=== PATIENT | female | born 1960 | race Caucasian/White ===

== ENCOUNTER 2016-03-18 16:34 | Outpatient (CLI) | payer OTHER | END 2016-03-18 16:35 | disposition home or self-care (01) | LOC: LAB 16:34 | PROVIDERS: ATTEND General Practice | DX: Z20.2 Contact with and (suspected) exposure to infections with a predominantly sexual mode of transmission (principal) | CPT/HCPCS: 36415 ==

== ENCOUNTER 2016-03-23 09:27 | Outpatient (CLI) ==
[2016-03-23 13:15] LABS: ALBUMIN 3.8 g/dL (3.4-5.0); ALBUMIN/GLOBULIN RATIO 1.46; ANION GAP 15.8; BILIRUBIN,TOTAL 0.33 mg/dL (0.00-1.20); BUN/CREATININE RATIO 6.73; CALCIUM 9.3 mg/dL (8.2-10.2); CHOL/HDL RATIO 3.3 (4.5-5.5); CREATININE 1.04 mg/dL (0.60-1.30); POTASSIUM 3.8 mmol/L (3.5-5.10); TOTAL PROTEIN 6.4 g/dL (6.4-8.2)
== END 2016-03-23 09:28 | disposition home or self-care (01) ==
LOC: LAB 09:27
PROVIDERS: ATTEND General Practice
DX: E11.9 Type 2 diabetes mellitus without complications (principal)
CPT/HCPCS: 36415; 80053; 80061; 83036

== ENCOUNTER 2016-03-31 13:03 | Outpatient (CLI) ==
--- NOTE | 2016-03-31 13:54 | US ---
EXAM: ULTRASOUND CAROTID DUPLEX, BILATERAL HISTORY: Hypertension, diabetes, dizziness FINDINGS: Shafer-scale ultrasound, color Doppler and spectral analysis was performed. Velocities are in meters per second. By shafer scale and color Doppler imaging, there were regions of heterogeneous plaque formation ident ified within the carotid bulbs and internal carotid arteries. These regions of plaque appeared to r emain less than 50% vessel diameter. RIGHT: External carotid artery peak systolic velocity: 1.2 Common carotid artery peak systolic velocity/end diastolic velocity: 0.6/0.2 Internal carotid artery peak systolic velocity: 0.9 ICA/CCA peak systolic velocity ratio: 1.4 ICA end diastolic velocity: 0.3 LEFT: External carotid artery peak systolic velocity: 1.0 Common carotid artery peak systolic velocity/end diastolic velocity: 0.7/0.2 Internal carotid artery peak systolic velocity: 1.0 ICA/CCA peak systolic velocity ratio: 1.5 ICA end diastolic velocity: A 0.3 The right and left vertebral arteries were antegrade. IMPRESSION: 1. By shafer scale and color Doppler imaging, there were regions of heterogeneous plaque formation id entified within the carotid bulbs and internal carotid arteries. These regions of plaque appeared t o remain less than 50% vessel diameter. 2. Internal carotid artery peak systolic velocities and ICA/CCA peak systolic velocity ratios indic ate no hemodynamically significant stenosis bilaterally. 3. Both tibial arteries were antegrade.
== END 2016-03-31 13:04 | disposition home or self-care (01) ==
LOC: RAD 13:03
PROVIDERS: ATTEND General Practice
DX: R09.89 Other specified symptoms and signs involving the circulatory and respiratory systems (principal)

== ENCOUNTER 2016-04-06 10:01 | Outpatient (CLI) ==
--- NOTE | 2016-04-06 10:59 | MAMMO ---
EXAM: Digital right diagnostic mammogram HISTORY: Right breast nodule COMPARISON: Mammogram 03/04/2015 and screening mammogram 02/01/2015 FINDINGS: MLO and CC views of the bilateral breasts were performed digitally and demonstrate scatte red fibroglandular breast density (25 - 50%). Bilateral benign-appearing upper outer breast lymph no shadi/nodules are unchanged from prior exam. The area of nodularity in the posterior central right br east as seen on screening examination dating back to 02/01/2015 is unchanged. This is not identifie d on today's right MLO view definitively. This is unchanged in size measuring 0.9 cm in diameter an d approximately 11.2 cm from the nipple. IMPRESSION: No significant change in right breast nodular asymmetry in the posterior right central breast on CC view dating back to 02/01/2015. No new or suspicious nodule is noted in the left breast . RECOMMENDATION: 6-month follow up right-sided diagnostic mammogram to document 2 years of stability. BIRADS category III: Probable benign finding.
== END 2016-04-06 10:02 | disposition home or self-care (01) ==
LOC: RAD 10:01
PROVIDERS: ATTEND General Practice
DX: N63 Unspecified lump in breast (principal)

== ENCOUNTER 2016-05-06 11:56 | Outpatient (CLI) ==
[2016-05-06 12:54] LABS: FLU INTERNAL QC INTERNAL QC VALID; RAPID FLU A NEGATIVE (NEGATIVE); RAPID FLU B NEGATIVE (NEGATIVE)
== END 2016-05-06 11:57 | disposition home or self-care (01) ==
LOC: LAB 11:56
PROVIDERS: ATTEND General Practice
DX: R05 Cough (principal); R50.9 Fever, unspecified; R52 Pain, unspecified
CPT/HCPCS: 87651; 87804; 87880

== ENCOUNTER 2016-09-28 11:58 | Outpatient (CLI) ==
[2016-09-28 13:19] LABS: BASOPHILS # (AUTO) 0.1 K/uL (0-0.2); EOSINOPHILS # (AUTO) 0.3 K/ul (0.0-0.7); EOSINOPHILS % (AUTO) 3.1 % (0.0-7.0); HEMATOCRIT 43.2 % (37.0-47.0); HEMOGLOBIN 14.3 g/dl (12.0-16.0); IMMATURE GRANULOCYTE % (AUTO) 0.3 % (0.0-5.0); LYMPHOCYTES # (AUTO) 1.6 K/uL (0.60-3.4); LYMPHOCYTES % (AUTO) 19.5 (10.0-50.0); MEAN CORPUSCULAR HEMOGLOBIN 27.9 pg (27.0-31.0); MEAN CORPUSCULAR HGB CONC 33.1 (31.8-35.4); MEAN CORPUSCULAR VOLUME 84.2 fl (81.0-99.0); MONOCYTES # (AUTO) 0.6 K/uL (0.4-2.0); MONOCYTES % (AUTO) 6.9 (0-10); NEUTROPHILS # (AUTO) 5.5 K/ul (2.0-6.9); NEUTROPHILS % (AUTO) 69.2; PLATELET COUNT 298 10^3/uL (140-440); RED BLOOD COUNT 5.13 10^6/ul (4.20-5.40); WHITE BLOOD COUNT 7.94 K/ul (4.6-10.2)
[2016-09-28 13:20] LABS: BILIRUBIN,URINE Negative (NEGATIVE); KETONES,URINE Negative (NEGATIVE); LEUKOCYTE ESTERASE ,URINE Negative (NEGATIVE); NITRITE,URINE Negative (NEGATIVE); PH,URINE 6.5 (5-9); PROTEIN,URINE Negative (NEGATIVE); URINE, BLOOD Negative (NEGATIVE)
[2016-09-28 13:23] LABS: ADD URINE MICROSCOPIC NO
[2016-09-28 13:59] LABS: ALBUMIN 3.8 g/dL (3.4-5.0); ALBUMIN/GLOBULIN RATIO 1.27; BILIRUBIN,TOTAL 0.62 mg/dL (0.00-1.20); BUN/CREATININE RATIO 14.44; CALCIUM 9.7 mg/dL (8.2-10.2); CHOL/HDL RATIO 4.6 (4.5-5.5); CREATININE 0.9 mg/dL (0.60-1.30); TOTAL PROTEIN 6.8 g/dL (6.4-8.2)
== END 2016-09-28 11:59 | disposition home or self-care (01) ==
LOC: LAB 11:58
PROVIDERS: ATTEND General Practice
DX: E03.9 Hypothyroidism, unspecified (principal); E11.9 Type 2 diabetes mellitus without complications; I10 Essential (primary) hypertension; N18.3 Chronic kidney disease, stage 3 (moderate); Z79.899 Other long term (current) drug therapy
CPT/HCPCS: 36415; 80053; 80061; 81001; 83036; 84443; 85025

== ENCOUNTER 2017-07-15 17:21 | Outpatient (CLI) | payer OTHER | END 2017-07-15 17:22 | disposition home or self-care (01) | LOC: FCC-LAB 17:21 | PROVIDERS: ATTEND General Practice | DX: E11.9 Type 2 diabetes mellitus without complications (principal); N18.3 Chronic kidney disease, stage 3 (moderate); I10 Essential (primary) hypertension; E03.9 Hypothyroidism, unspecified; Z98.84 Bariatric surgery status; Z79.899 Other long term (current) drug therapy | CPT/HCPCS: 81001 ==

== ENCOUNTER 2017-07-16 12:37 | Outpatient (CLI) | END 2017-07-16 12:38 | disposition home or self-care (01) | LOC: FCC-LAB 12:37 | PROVIDERS: ATTEND General Practice | DX: E11.9 Type 2 diabetes mellitus without complications (principal); N18.3 Chronic kidney disease, stage 3 (moderate); I10 Essential (primary) hypertension; E03.9 Hypothyroidism, unspecified; Z98.84 Bariatric surgery status; Z79.899 Other long term (current) drug therapy | CPT/HCPCS: 36415; 80061; 83036; 83519; 83525; 84443; 84681; 85025 ==

== ENCOUNTER 2017-08-19 15:39 | Outpatient (CLI) | payer OTHER | END 2017-08-19 15:40 | disposition home or self-care (01) | LOC: FCC-LAB 15:39 | PROVIDERS: ATTEND General Practice | DX: E78.5 Hyperlipidemia, unspecified (principal); E11.9 Type 2 diabetes mellitus without complications; I10 Essential (primary) hypertension; E03.9 Hypothyroidism, unspecified; N18.3 Chronic kidney disease, stage 3 (moderate); Z79.899 Other long term (current) drug therapy; Z98.84 Bariatric surgery status | CPT/HCPCS: 36415; 80053 ==

== ENCOUNTER 2017-09-30 10:29 | Outpatient (CLI) | END 2017-09-30 10:30 | disposition home or self-care (01) | LOC: FCC-LAB 10:29 | PROVIDERS: ATTEND General Practice | DX: E11.9 Type 2 diabetes mellitus without complications (principal) | CPT/HCPCS: 36415; 83036 ==

== ENCOUNTER 2017-10-08 11:11 | Outpatient (CLI) ==
--- NOTE | 2017-10-08 11:55 | CT ---
EXAM: CT of the head without contrast History: Headache. Comparison: None available. Technique: Multiplanar CT images through the head were obtained without the administration of IV con trast Findings: The visualized paranasal sinuses and mastoid air cells are clear in general. No acute kirk varial abnormalities. Intracranially the ventricular and cisternal spaces are normal in size, shape and configuration for a patient of this age. No dominant mass or midline shift. No hydrocephalous. No acute intracranial hemorrhage or abnormal extraaxial fluid collections. Impression: No acute intracranial process.
== END 2017-10-08 11:12 | disposition home or self-care (01) ==
LOC: RAD 11:11
PROVIDERS: ATTEND General Practice
DX: R51 Headache (principal)

== ENCOUNTER 2017-10-11 17:52 | Emergency (ER) | payer OTHER ==
[2017-10-11 17:56] VITALS: BP 149/74; TEMP 98.7; BMI 39.1
--- NOTE | 2017-10-11 18:15 | ED.PDOC ---
General ED Provider: Dr. DASHAWN MCNEAL Chief Complaint: Neck Pain Non-Injury Stated Complaint: Neck ache. States stiff and sore. Was seen by pcp and CT head obtained. No aware or results and came her to be seen and to get results/ Still having slight stiffness and soreness .Denies symptoms of radiculating features into either upper or lower extremities. Time Seen by Physician: 18:05 Mode of Arrival: Walk-In Information Source: Patient Exam Limitations: No limitations [facility] Nursing and Triage Documentation Reviewed and Agree: Yes Does patient meet sepsis criteria?: No System Inflammatory Response Syndrome: Not Applicable Sepsis Protocol: For patient's 13 years and over: Temp is 96.8 and below OR 101 and greater Pulse >90 BPM Resp >20/minute Acutely Altered Mental Status Are patient's symptoms suggestive of a new infection, such as: -Pneumonia -Skin, Soft Tissue -Endocarditis -UTI -Bone, Joint Infection -Implantable Device -Acute Abdominal Infection -Wound Infection -Meningitis -Blood Stream Catheter Infection -Unknown Musculoskeletal Complaint Exam - Neck Pain Complaint/Exam Mechanism of Injury: Reports: No known trauma Symptoms Are: Still present Timing: Intermittent Episodes Lasting: Hours Initial Severity: Moderate Current Severity: Mild Location: Reports: Discrete Character: Reports: Aching, Stiffness Aggravating: Reports: Position, Movement Alleviating: Reports: Position, Heat, Ice Associated Signs and Symptoms: Reports: Headache. Denies: Swelling, Redness, Bruising, Fever, Nuchal rigidity, Weakness, Paresthesia Related History: Reports: Similar episode Meningitis Risk Factors: Reports: None Cervical Spine Injury Risk Factors: Reports: None Related Surgical History: Reports: None Carotid Bruit Present: No Pain on Passive Flexion: Yes Positive Kernig's Sign: No ROM Limited In: Present: Side bending, Rotation Tenderness: Present: Midline, Paraspinal Radiates to: Absent: Right arm, Left arm Focal Weakness: Present: None Focal Sensory Loss: Reports: None Nexus Low Risk Criteria: No post-midline CS tender, No evidence of intoxicat., No Altered LOC, No focal neuro deficit, No distracting injuries Differential Diagnoses: Arthritis, Strain Review of Systems - Review Of Systems Constitutional: Reports: No symptoms Eyes: Reports: No symptoms Ears, Nose, Mouth, Throat: Reports: No symptoms Respiratory: Reports: No symptoms Cardiac: Reports: No symptoms GI: Reports: No symptoms : Reports: No symptoms Musculoskeletal: Reports: No symptoms, Neck pain Skin: Reports: No symptoms Neurological: Reports: No symptoms Endocrine: Reports: No symptoms Hematologic/Lymphatic: Reports: No symptoms All Other Systems: Reviewed and Negative Past Medical History - Past Medical History Previously Healthy: Yes Endocrine: Reports: None Cardiovascular: Reports: None Respiratory: Reports: None Hematological: Reports: None Gastrointestinal: Reports: None Genitourinary: Reports: None Neuro/Psych: Reports: None Musculoskeletal: Reports: None Cancer: Reports: None Last Menstrual Period: None - Surgical History General Surgical History: Reports: None - Family History Family History: Reports: None - Social History Smoking Status: Current every day smoker, Heavy tobacco smoker Hx Substance Use: No Alcohol Screening: None - Immunizations Tetanus Shot up to Date: Yes Physical Exam - Physical Exam Appearance: Well-appearing, No pain distress, Well-nourished Eyes: MALINDA, EOMI, Conjunctiva clear ENT: Ears normal, Nose normal, Oropharynx normal Respiratory: Airway patent, Breath sounds clear, Breath sounds equal, Respirations nonlabored Cardiovascular: RRR, Pulses normal, No rub, No murmur GI/: Soft, Nontender, No masses, Bowel sounds normal, No Organomegaly Musculoskeletal: Normal strength (Focal tender points Rt First Rib. Rt OA and Lt C2> sx resoved with NonHVLA Counterstrain), ROM intact, No edema, No calf tenderness Skin: Warm, Dry, Normal color Neurological: Sensation intact, Motor intact, Reflexes intact, Cranial nerves intact, Alert, Oriented Psychiatric: Affect appropriate, Mood appropriate Interpretation - Radiology Interpretation Exam Interpreted: CT Scan (Head done recently wnl) Critical Care Note - Critical Care Note Total Time (mins): 0 Course - Course Orders, Labs, Meds: Orders Category Date Time Status Acetaminophen [Tylenol] MEDS 10/11/17 18:25 Discontinued 650 mg PO ONCE STA Medications Discontinued Medications Generic Name Dose Route Start Last Admin Trade Name Freq PRN Reason Stop Dose Admin Acetaminophen 650 mg 10/11/17 18:25 Tylenol PO 10/11/17 18:26 ONCE STA Vital Signs: Temp Pulse Resp BP Pulse Ox 10/11/17 17:52 98.7 F 96 H 20 149/74 H 92 L Departure - Departure Time of Disposition: 18:20 Disposition: HOME SELF-CARE Discharge Problem: Cervicalgia of weftdbnf-dxcftgk-dkgvw region, Somatic dysfunction of costovertebral joint structure Instructions: Cervical Strain (ED), Cervical Strain (DC) Condition: Good Pt referred to PMD for follow-up: Yes (1 week) IPMP verified?: No Additional Instructions: Take Tylenol 325 mg 1-2 tabs every 4 hrs for pain as needed Apply warm moist heat to area of discomfort Exercises as directed Allergies/Adverse Reactions: Allergies No Known Allergies Allergy (Unverified 10/11/17 17:55) Disposition Discussed With: Patient
[2017-10-11] MEDS ORDERED: TYLENOL PO STA (18:25)
== END 2017-10-11 18:54 | disposition home or self-care (01) ==
LOC: ED 17:52
DX: M54.2 Cervicalgia (principal); M99.08 Segmental and somatic dysfunction of rib cage; F17.210 Nicotine dependence, cigarettes, uncomplicated
CPT/HCPCS: 99282

== ENCOUNTER 2017-11-09 12:56 | Outpatient (CLI) | END 2017-11-09 12:57 | disposition home or self-care (01) | LOC: FCC-LAB 12:56 | PROVIDERS: ATTEND General Practice | DX: E11.9 Type 2 diabetes mellitus without complications (principal); N18.3 Chronic kidney disease, stage 3 (moderate); I10 Essential (primary) hypertension; M25.552 Pain in left hip; M81.0 Age-related osteoporosis without current pathological fracture | CPT/HCPCS: 36415; 82150; 82947; 83036; 83690 ==

== ENCOUNTER 2017-11-25 16:11 | Outpatient (CLI) | payer OTHER | END 2017-11-25 16:12 | disposition home or self-care (01) | LOC: FCC-LAB 16:11 | PROVIDERS: ATTEND Family Medicine | DX: N30.90 Cystitis, unspecified without hematuria (principal) | CPT/HCPCS: 87086 ==

== ENCOUNTER 2017-12-28 10:55 | Outpatient (CLI) | END 2017-12-28 10:56 | disposition home or self-care (01) | LOC: LAB 10:55 | PROVIDERS: ATTEND General Practice | DX: E11.9 Type 2 diabetes mellitus without complications (principal); N18.3 Chronic kidney disease, stage 3 (moderate); Z79.899 Other long term (current) drug therapy | CPT/HCPCS: 36415; 80053; 80061; 81001; 83036; 85025 ==

== ENCOUNTER 2017-12-31 16:14 | Outpatient (CLI) | END 2017-12-31 16:15 | disposition home or self-care (01) | LOC: RHC-LAB 16:14 | PROVIDERS: ATTEND General Practice | DX: E11.9 Type 2 diabetes mellitus without complications (principal); N18.3 Chronic kidney disease, stage 3 (moderate); R35.0 Frequency of micturition; R30.9 Painful micturition, unspecified | CPT/HCPCS: 81001; 87086 ==

== ENCOUNTER 2018-01-04 15:03 | Outpatient (CLI) | END 2018-01-04 15:04 | disposition home or self-care (01) | LOC: RHC-LAB 15:03 | PROVIDERS: ATTEND General Practice | DX: R31.9 Hematuria, unspecified (principal); R10.9 Unspecified abdominal pain | CPT/HCPCS: 82272 ==

== ENCOUNTER 2018-04-13 11:17 | Emergency (ER) | payer OTHER ==
[2018-04-13 11:24] VITALS: BP 138/91; TEMP 97.2; BMI 40.4
--- NOTE | 2018-04-13 11:58 | ED.PDOC ---
General ED Provider: Dr. TRUDY RODRGIUES Chief Complaint: Syncope Stated Complaint: patient states that she has occasional vertigo problems and poss labirynthitis,PMHx of Meclizine. Time Seen by Physician: 11:58 Mode of Arrival: Ambulance Information Source: Patient, EMT Exam Limitations: No limitations Primary Care Provider: ABDOULAYE CLEMENTS Referred to ED by: Other Nursing and Triage Documentation Reviewed and Agree: Yes Does patient meet sepsis criteria?: No System Inflammatory Response Syndrome: Not Applicable Sepsis Protocol: For patient's 13 years and over: Temp is 96.8 and below OR 101 and greater Pulse >90 BPM Resp >20/minute Acutely Altered Mental Status Are patient's symptoms suggestive of a new infection, such as: -Pneumonia -Skin, Soft Tissue -Endocarditis -UTI -Bone, Joint Infection -Implantable Device -Acute Abdominal Infection -Wound Infection -Meningitis -Blood Stream Catheter Infection -Unknown EENT Complaint Exam - Ear Complaint/Exam Onset/Duration: today Symptoms Are: Resolved Timing: Intermittent Initial Severity: Mild Current Severity: None Character: Reports: Dizzy Aggravating: Reports: None Alleviating: Reports: OTC Meds Related History: Reports: Similar Episode Ear Surgical History: None Vesicles to External Pinna: No Vesicles to Tragus: No TMJ Tenderness: None Mastoid Tenderness: None Tragal Tenderness: None External Canal: Normal Material in Canal: Present: Cerumen impaction Tympanic Membrane: Erythema Differential Diagnoses: Cellulitis, Otitis Externa Review of Systems - Review Of Systems Constitutional: Reports: No symptoms, Weakness Eyes: Reports: No symptoms Ears, Nose, Mouth, Throat: Reports: No symptoms Respiratory: Reports: No symptoms Cardiac: Reports: No symptoms GI: Reports: No symptoms : Reports: No symptoms Musculoskeletal: Reports: No symptoms Skin: Reports: No symptoms Neurological: Reports: No symptoms Endocrine: Reports: No symptoms Hematologic/Lymphatic: Reports: No symptoms All Other Systems: Reviewed and Negative Past Medical History - Past Medical History Previously Healthy: Yes Endocrine: Reports: None Cardiovascular: Reports: None Respiratory: Reports: None Hematological: Reports: None Gastrointestinal: Reports: None Genitourinary: Reports: None Neuro/Psych: Reports: None Musculoskeletal: Reports: None Cancer: Reports: None Last Menstrual Period: n/a - Surgical History General Surgical History: Reports: None - Family History Family History: Reports: None - Social History Smoking Status: Current every day smoker, Heavy tobacco smoker Hx Substance Use: No Alcohol Screening: None Physical Exam - Physical Exam Appearance: Well-appearing Ill-appearing: None Pain Distress: None Eyes: MALINDA ENT: Oropharynx normal Respiratory: Airway patent Cardiovascular: RRR GI/: Soft, Nontender Musculoskeletal: Normal strength Neurological: Sensation intact Re-Evaluation - Re-Evaluation Time of Re-Evaluation: 12:29 Status: Improved Vital Signs Stable: Yes Appearance: NAD Lungs: Clear Skin: Warm and Dry Neuro: Alert and Oriented X3 CV: RRR Additional Comments: EKG normal Critical Care Note - Critical Care Note Total Time (mins): 0 Course - Course Hematology/Chemistry: 04/13/18 14:16 04/13/18 14:16 Vital Signs: Temp Pulse Resp BP Pulse Ox 04/13/18 11:17 97.2 F L 67 16 138/91 H 94 L Departure - Departure Time of Disposition: 16:21 Disposition: HOME SELF-CARE Discharge Problem: Hyperglycemia Instructions: Diabetic Hyperglycemia (ED) Condition: Good Pt referred to PMD for follow-up: Yes (follow up with PCP) IPMP verified?: No Allergies/Adverse Reactions: Allergies No Known Allergies Allergy (Verified 04/13/18 11:27) Home Medications: Ambulatory Orders Semaglutide [Ozempic] 0.25 mg SQ WEEKLY 04/13/18
[2018-04-13] MEDS ORDERED: SODIUM CHLORIDE 1,000 ML IV STA (12:02)
--- NOTE | 2018-04-13 13:10 | CT ---
EXAM: CT BRAIN HISTORY: Dizziness, unsteady TECHNIQUE: CT brain without intravenous contrast. 5-mm axial sections with Reformations. COMPARISON: 10/08/2017 FINDINGS: Brain is unremarkable without evidence of hemorrhage or large vessel distribution recent ischemic in farction. There is no suggestion of acute hydrocephalus or subdural fluid collection. No mass or ma ss effect. Cranium has no acute finding. Mastoid processes are aerated. The visualized paranasal sinuses are clear. IMPRESSION: No acute intracranial process.
== END 2018-04-13 16:35 | disposition home or self-care (01) ==
LOC: ED 11:17
DX: E11.65 Type 2 diabetes mellitus with hyperglycemia (principal); R55 Syncope and collapse; R42 Dizziness and giddiness; F17.210 Nicotine dependence, cigarettes, uncomplicated; I10 Essential (primary) hypertension; E78.5 Hyperlipidemia, unspecified; R11.2 Nausea with vomiting, unspecified
CPT/HCPCS: 36415; 80053; 81001; 85025; 93005; 93010; 96360; 99284

== ENCOUNTER 2018-06-03 08:45 | Outpatient (CLI) | END 2018-06-03 08:46 | disposition home or self-care (01) | LOC: RHC-LAB 08:45 → FCC-LAB 08:46 | PROVIDERS: ATTEND General Practice | DX: E11.9 Type 2 diabetes mellitus without complications (principal); N18.3 Chronic kidney disease, stage 3 (moderate); I10 Essential (primary) hypertension; E03.9 Hypothyroidism, unspecified; E78.5 Hyperlipidemia, unspecified; R09.89 Other specified symptoms and signs involving the circulatory and respiratory systems; Z79.899 Other long term (current) drug therapy | CPT/HCPCS: 36415; 80053; 80061; 81001; 83036; 85025 ==

== ENCOUNTER 2018-06-07 12:56 | Outpatient (CLI) ==
--- NOTE | 2018-06-07 13:44 | US ---
EXAM: ULTRASOUND CAROTID DUPLEX, BILATERAL HISTORY: Lightheadedness/dizziness. Weakness FINDINGS: Shafer-scale ultrasound, color Doppler and spectral analysis was performed. Velocities are in meters per second. By shafer scale and color Doppler imaging, there were regions of heterogeneous plaque formation identi fied within the carotid bulbs and internal carotid arteries. These regions of plaque appeared to rem ain less than 50% vessel diameter. RIGHT: External carotid artery peak systolic velocity: 1.1 Common carotid artery peak systolic velocity/end diastolic velocity: 0.7/0.15 Internal carotid artery peak systolic velocity: 0.76 ICA/CCA peak systolic velocity ratio: 1.1 ICA end diastolic velocity: 0.32 LEFT: External carotid artery peak systolic velocity: 1.2 Common carotid artery peak systolic velocity/end diastolic velocity: 0.74/0.18 Internal carotid artery peak systolic velocity: 0.86 ICA/CCA peak systolic velocity ratio: 1.2 ICA end diastolic velocity: 0.25 The right and left vertebral arteries were antegrade. IMPRESSION: 1. By hsafer scale and color Doppler imaging, there were regions of heterogeneous plaque formation theresa ntified within the carotid bulbs and internal carotid arteries. These regions of plaque appeared to remain less than 50% vessel diameter. 2. Internal carotid artery peak systolic velocities and ICA/CCA peak systolic velocity ratios indica te no hemodynamically significant stenosis bilaterally. 3. Both vertebral arteries were antegrade.
== END 2018-06-07 12:57 | disposition home or self-care (01) ==
LOC: RAD 12:56
PROVIDERS: ATTEND General Practice
DX: R09.89 Other specified symptoms and signs involving the circulatory and respiratory systems (principal)

== ENCOUNTER 2018-10-10 11:38 | Emergency (ER) ==
[2018-10-10 11:46] VITALS: BP 116/69; TEMP 97.8; BMI 39.9
--- NOTE | 2018-10-10 13:39 | CT ---
EXAM: CT left shoulder without contrast HISTORY: Pain, injury COMPARISON: None TECHNIQUE: CT left shoulder performed without intravenous contrast. Coronal and sagittal reformatte d images obtained. FINDINGS: No fracture or dislocation. Mild to moderate osteoarthritis acromioclavicular joint with joint space narrowing osteophyte formation. Mild osteoarthritis glenohumeral joint. 3 mm nodule lef t lung image 46. 3 mm nodule left lung image 55 IMPRESSION: 1. No fracture or dislocation. 2. Osteoarthritis. 3. Two pulmonary nodules left lung measuring [address] chest follow-up can be considered in 12 month s if patient at high risk for malignancy, such as a smoker
--- NOTE | 2018-10-10 13:54 | ED.PDOC ---
General ED Provider: Dr. NANCY BOYD Chief Complaint: Shoulder Pain/Injury Stated Complaint: LEFT SHOULDER PAIN AFTER A FALL Time Seen by Physician: 11:46 (SEEN WITH HER NURSR AT ALL TIMES ) Mode of Arrival: Walk-In Information Source: Patient Exam Limitations: No limitations [facility] and Triage Documentation Reviewed and Agree: Yes Does patient meet sepsis criteria?: No System Inflammatory Response Syndrome: Not Applicable Sepsis Protocol: For patient's 13 years and over: Temp is 96.8 and below OR 101 and greater Pulse >90 BPM Resp >20/minute Acutely Altered Mental Status Are patient's symptoms suggestive of a new infection, such as: -Pneumonia -Skin, Soft Tissue -Endocarditis -UTI -Bone, Joint Infection -Implantable Device -Acute Abdominal Infection -Wound Infection -Meningitis -Blood Stream Catheter Infection -Unknown Musculoskeletal Complaint Exam - Back Pain Complaint/Exam Mechanism of Injury: Reports: Trauma Onset/Duration: 1 DAY Symptoms Are: Still present Timing: Constant Episodes Lasting: Hours Initial Severity: Moderate Current Severity: Moderate Location: Reports: Discrete Character: Reports: Aching, Throbbing, Spasmodic Aggravating: Reports: Movements, Lifting, Bending, Walking Alleviating: Reports: Rest, Position Associated Signs and Symptoms: Denies: Swelling, Redness, Bruising, Fever, Weakness, Numbness, Tingling, Abdominal pain, Flank pain, Bladder incontinence, Bowel incontinence, Weight loss, Pain with weight bearing Review of Systems - Review Of Systems Constitutional: Reports: No symptoms Eyes: Reports: No symptoms Ears, Nose, Mouth, Throat: Reports: No symptoms Respiratory: Reports: No symptoms Cardiac: Reports: No symptoms GI: Reports: No symptoms : Reports: No symptoms Musculoskeletal: Reports: Joint pain (LEFT SHOULDER PAIN AND LIMITED ROM) Skin: Reports: No symptoms Neurological: Reports: No symptoms Endocrine: Reports: No symptoms Hematologic/Lymphatic: Reports: No symptoms All Other Systems: Reviewed and Negative Past Medical History - Past Medical History Previously Healthy: Yes Endocrine: Reports: DM 2, Dyslipidemia Cardiovascular: Reports: None, Hypertension Respiratory: Reports: None Hematological: Reports: None Gastrointestinal: Reports: GERD Genitourinary: Reports: CKD, Other (UTI) Neuro/Psych: Reports: None Musculoskeletal: Reports: None Cancer: Reports: None Last Menstrual Period: na - Surgical History General Surgical History: Reports: None - Family History Family History: Reports: None - Social History Smoking Status: Current every day smoker Hx Substance Use: No Alcohol Screening: None - Immunizations Tetanus Shot up to Date: No Physical Exam - Physical Exam Appearance: Well-appearing, No pain distress, Well-nourished Eyes: MALINDA, EOMI, Conjunctiva clear ENT: Ears normal, Nose normal, Oropharynx normal Respiratory: Airway patent, Breath sounds clear, Breath sounds equal, Respirations nonlabored Cardiovascular: RRR, Pulses normal, No rub, No murmur GI/: Soft, Nontender, No masses, Bowel sounds normal, No Organomegaly Musculoskeletal: Limited ROM (LEFT SHOULDER ) Skin: Warm, Dry, Normal color Neurological: Sensation intact, Motor intact, Reflexes intact, Cranial nerves intact, Alert, Oriented Psychiatric: Affect appropriate, Mood appropriate Critical Care Note - Critical Care Note Total Time (mins): 0 Course - Course Orders, Labs, Meds: Orders Category Date Time Status CT SHOULDER LEFT W/O CONTRAST Stat RADS 10/10/18 11:54 Completed Vital Signs: Temp Pulse Resp BP Pulse Ox 10/10/18 11:39 97.8 F 74 16 116/69 97 Departure - Departure Time of Disposition: 13:54 Disposition: HOME SELF-CARE Discharge Problem: Shoulder pain, Injury of shoulder region Rotator cuff (capsule) sprain Qualifiers: Encounter type: initial encounter Laterality: left Qualified Code(s): S43.422A - Sprain of left rotator cuff capsule, initial encounter Instructions: Shoulder Sprain (ED), Rotator Cuff Injury (ED) Condition: Good Pt referred to PMD for follow-up: Yes IPMP verified?: No Additional Instructions: Please call your Family Physician as soon as possible to schedule a follow-up appointment. Allergies/Adverse Reactions: Allergies No Known Allergies Allergy (Verified 10/10/18 11:47) Home Medications: Ambulatory Orders Semaglutide [Ozempic] 0.25 mg SQ WEEKLY 04/13/18 Disposition Discussed With: Patient
== END 2018-10-10 13:57 | disposition home or self-care (01) ==
LOC: ED 11:38
DX: S43.422A Sprain of left rotator cuff capsule, initial encounter (principal); W19.XXXA Unspecified fall, initial encounter; F17.210 Nicotine dependence, cigarettes, uncomplicated
CPT/HCPCS: 99283